=== PATIENT | male | born 1960 | race Caucasian/White ===

== ENCOUNTER 2017-01-22 12:29 | Emergency (ER) | payer BC ==
[~2017-01-22] VITALS: Ht 188 cm; Wt 110.6 kg
[2017-01-22] MEDS ORDERED: LANTUS 10100 UNITS/ SC (13:32)
[2017-01-22] MEDS ORDERED: LISINOPRIL10 MG PO (13:33)
[2017-01-22] MEDS ORDERED: HUMALOG100 UNIT/1 SC (13:33)
[2017-01-22] MEDS ORDERED: LEVOTHYROXINE200 MC1 PO (13:33)
[2017-01-22] MEDS ORDERED: ASPIR 8181 M1 PO (13:34)
[2017-01-22] MEDS ORDERED: MOTRIN600 MG PO (15:22)
[2017-01-22] MEDS ORDERED: NORCO 5/3251 TABLET PO (15:22)
[2017-01-22] MEDS ORDERED: FLEXERIL5 MG PO (15:22)
[2017-01-22 15:34] VITALS: BP 121/76
== END 2017-01-22 15:36 | disposition home or self-care (01) ==
LOC: EME 12:29
DX: S16.1XXA Strain of muscle, fascia and tendon at neck level, initial encounter (principal); V49.60XA Unspecified car occupant injured in collision with unspecified motor vehicles in traffic accident, initial encounter; I10 Essential (primary) hypertension; E03.9 Hypothyroidism, unspecified; E11.9 Type 2 diabetes mellitus without complications; Z79.4 Long term (current) use of insulin; Z79.82 Long term (current) use of aspirin
CPT/HCPCS: 72040; 99281; 99283